=== PATIENT | female | born 1995 | race Caucasian/White ===

== ENCOUNTER 2017-06-28 15:46 | Emergency (ER) | payer OTHER ==
[2017-06-28] MEDS ORDERED: SODIUM CHLORIDE 0.9% 1000ML 1,000 ML IV SCH (16:00)
[2017-06-28] MEDS ORDERED: ONDANSETRON HCL 4 MG/2 ML SOL IV ONE (16:00)
[2017-06-28] MEDS ORDERED: HYDROMORPHONE HCL 2 MG/ML SOL IV ONE (16:00)
[2017-06-28 16:17] VITALS: TEMP 97.8
[2017-06-28 16:17] LABS: BASOPHILS % (AUTO) 1 % (0-3); EOSINOPHILS % (AUTO) 1 % (0-9); HEMATOCRIT 36 % (35-47); MEAN CORPUSCULAR HGB CONC 33.3 gm/dl (32.0-36.0); MEAN CORPUSCULAR VOLUME 85 fL (81-99); NEUTROPHILS % (AUTO) 78.6 % (37-80)
[2017-06-28 16:24] LABS: CALCIUM 8.4 mg/dl (8.5-10.1)
[2017-06-28] MEDS ORDERED: ONDANSETRON HCL 4 MG/2 ML SOL ONE (16:27)
[2017-06-28] MEDS ORDERED: HYDROMORPHONE 1 MG/ML SYRINGE ONE (16:27)
[2017-06-28] MEDS ORDERED: HYDROMORPHONE 1 MG/ML SYRINGE IV ONE (16:36)
[2017-06-28 18:35] VITALS: PULSE 98; RESP 18; O2SAT 100
[2017-06-28 19:10] VITALS: BP 145/98
== END 2017-06-28 19:10 | disposition home or self-care (01) | DRG 563 ==
LOC: ED 15:46
DX: S43.014A Anterior dislocation of right humerus, initial encounter (principal); W18.2XXA Fall in (into) shower or empty bathtub, initial encounter
CPT/HCPCS: 23650; 73020; 80048; 84703; 85025; 96365; 96366; 96374; 96375; 99285; J2405; J1170; J2704

== ENCOUNTER 2017-07-08 12:38 | Outpatient (CLI) | payer OTHER ==
[2017-06-28 18:35] VITALS: O2SAT 100
== END 2017-07-08 12:39 | disposition home or self-care (01) | DRG 556 ==
LOC: CONVCARE 12:38
PROVIDERS: ATTEND Orthopaedic Surgery
DX: M25.511 Pain in right shoulder (principal); S43.004A Unspecified dislocation of right shoulder joint, initial encounter
CPT/HCPCS: 73030